=== PATIENT | female | born 1950 | race Caucasian/White ===

== ENCOUNTER → 2023-07-06 16:43 | Outpatient (REF) | payer OTHER, SELFPAY | LOC: HWWDC 16:43 | PROVIDERS: ATTENDING PHYSICIAN Family Medicine; REFERRING PHYSICIAN Obstetrics & Gynecology | DX: Z12.31 Encounter for screening mammogram for malignant neoplasm of breast (principal) | CPT/HCPCS: 77063; 77067 ==

== ENCOUNTER → 2024-07-23 14:26 | Outpatient (REF) | payer OTHER, SELFPAY | LOC: HWWDC 14:26 | PROVIDERS: ATTENDING PHYSICIAN Obstetrics & Gynecology; FAMILY PHYSICIAN Family Medicine | DX: Z12.31 Encounter for screening mammogram for malignant neoplasm of breast (principal); Z78.0 Asymptomatic menopausal state | CPT/HCPCS: 77063; 77067; 77080 ==